=== PATIENT | female | born 2000 | race Two or more races ===

== ENCOUNTER 2025-02-18 17:46 | Emergency (ER) | payer OTHER ==
[~2025-02-18] VITALS: Ht 157.5 cm; Wt 65.8 kg
[2025-02-18 18:38] LABS: Hematocrit 35.0 % (36.0-46.0); Hemoglobin 12.2 g/dL (12.2-16.2); Mean Corpuscular Hemoglobin 32.0 pg (28.0-32.0); Mean Corpuscular Volume 92.0 fL (80.0-100.0); Nucleated Red Blood Cells % 0.1 %
[2025-02-18 18:47] LABS: Alkaline Phosphatase 51 U/L (46-116); Anion Gap 11 (5-15); BUN/Creatinine Ratio 12.3 (10.0-20.0); Calcium 9.5 mg/dL (8.7-10.4); Carbon Dioxide 23 mmol/L (20-31); Chloride 104 mmol/L (98-107); Glucose 83 mg/dL (74-106); Sodium 138 mmol/L (136-145); Total Protein 7.2 g/dL (5.7-8.2)
[2025-02-18 18:48] LABS: Albumin 4.2 g/dL (3.2-4.8); Bilirubin, Total 0.3 mg/dL (0.2-1.0)
[2025-02-18 18:52] LABS: Alanine Aminotransferase < 9 U/L (7-40); Blood Urea Nitrogen 7 mg/dL (9-23); Potassium 3.5 mmol/L (3.5-5.1)
[2025-02-18 19:31] LABS: Urine Protein, UAD Negative (Negative)
--- NOTE | 2025-02-18 20:18 | DVH ---
LIMITED OB ULTRASOUND > 14 WKS: HISTORY: pain TECHNIQUE: Multiple real-time grayscale images of the gravid uterus with duplex Doppler color flow and M-mode spectral analysis. TRANSDUCER: TRANSABDOMINAL FINDINGS: IUP single live fetus at 17 WEEKS 4 DAYS based on composite averages of the BPD, head circumference, abdominal circumference and femur length Estimated weight 193.6 grams heart rate 142 beats per minute mvp: 3.6 CM Cervix 3.9 CM PRESENTATION: Transverse head on maternal left POSTERIOR Grade 1 Placenta without previa or abruption. ANATOMY: 4-CHAMBER HEART: Within normal limits STOMACH: Normal RIGHT KIDNEY: Within normal limits LEFT KIDNEY: Normalbpd: BLADDER: Normal GESTATIONAL DATING: BPD: 3.83 cm = 17 weeks 5 days; 61.5 % HC: 14.57 cm, gestational age 17 weeks 5 days 58.4% AC: 11.78 cm, gestational age, 17 weeks 3 days, 51% FL: 2.39 cm= gestational age, 17 weeks 1 day 36.3% CI: 74.61 range 70.00-86.00 HC/AC: 1.24 range 1.08-1.28 FL/HC: 16.43 range 15.29 -17.83 IMPRESSION: 1. IUP single live fetus at 17 weeks 4 days AUA corresponding to an DESHAWN of 07/25/2025. 2. No placenta previa or abruption.
--- NOTE | 2025-02-18 20:30 | ED.PDOC ---
TRACTOR TRAILER TRUCK DRIVER HPI Comments PT REFERRED BY URGENT CARE TO ED FOR "AMNIOTIC FLUID CHECK & URINE PREGANCY TEST". PT DENIED ANY FURTHER S/S. LMP-09/16/2024. 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 HX: MARIANA NEWMAN PATIENT ALSO REPORTS WAS SEEN AT HER PCP PER VAGINAL DISCHARGE. SHE NOTES DARKISH BARND YELLOWISH DISCHARGE WITH NO PAIN. STATES SHE WAS GIVEN A SWABS SWAB HERSELF IN THE BATHROOM FELT SHE DID NOT GET THE SWAB ALL THE WAY UP RESULTS CAME BACK NEGATIVE. PATIENT STATES THAT SHE HAD BACTERIAL VAGINOSIS WITH THE LAST AND REPORTS CONCERN. DENIES ABDOMINAL PAIN/CRAMPING, VAGINAL SPOTTING OR BLEEDING REPORTS NO KNOWN INJURY. Chief Complaint: Time Seen by MD: 18:06 Reviewed Notes: Nurses Notes, Medications, Allergies Allergies: Coded Allergies: Amoxicillin (Verified Allergy, Unknown, 02/18/25) Home Meds Active Scripts Metronidazole Vaginal (Metronidazole Vaginal) 0.75 % Gel, 1 APPLIC VG QPM for 5 Days, #70 GRAMS Prov:ARIEL SINGH [facility] 02/18/25 Cephalexin Monohydrate (Cephalexin) 500 Mg Cap, 500 MG PO TID for 7 Days, #21 CAP Prov:ARIEL SINGH [facility] 02/18/25 Information Source: Patient Past Medical History PAST MEDICAL HISTORY: Denies Surgical History: Denies all surgeries REEL ASSEMBLER History: No Pertinent REEL ASSEMBLER History Family History Family History: Unknown Social History Smoker: Non-Smoker Alcohol: Denies ETOH Use Drugs: Denies Drug Use All Other Systems: Reviewed and Negative (see hpi) Physical Exam General Appearance: No Apparent Distress, Normal HEENT: Normal ENT Inspection, Pharynx Normal, TMs Normal Neck: Full Range of Motion, Non-Tender Respiratory: Lungs Clear, No Respiratory Distress, Normal Breath Sounds Cardiovascular: No Edema, No JVD, No Murmur, No Gallop, Normal Peripheral Pulses, Regular Rate/Rhythm Breast Exam: Deferred Gastrointestinal: No Organomegaly, Non Tender, No Pulsatile Mass, Normal Bowel Sounds, Soft Genitalia: Deferred Pelvic: Deferred Rectal: Deferred Extremities: No calf tenderness, Normal capillary refill, Normal range of motion, Non-tender, No pedal edema Musculoskeletal : Apperance: Normal Neurologic: Alert, No Motor Deficits, Normal Affect, Normal Mood, No Sensory Deficits Cerebellar Function: Normal Reflexes: NOT DONE Skin: Dry, Normal Color, Warm Lymphatic: No Adenopathy Was a procedure done? Was a procedure done?: No Differential Diagnosis (REEL ASSEMBLER) Vaginal Bleeding: - Incomplete, - Inevitable, - Threatened, Abruptio Placentae, Blood Loss Anemia, Placenta Previa, Precipitous Hct, UTI X-Ray, Labs, Meds, VS Vital Signs Date Time Temp Pulse Resp B/P (MAP) Pulse Ox O2 Delivery O2 Flow Rate FiO2 02/18/25 17:48 98.5 83 16 123/81 99 98.5 Lab Test 02/18/25 18:31 02/18/25 18:16 Range/Units Urine Color Light-yellow Yellow Urine Clarity Turbid H Clear Urine pH 5.5 5.0-9.0 Urine Specific Anderson 1.011 1.001-1.035 Urine Protein Negative Negative Urine Ketones 1+ H Negative Urine Blood Negative Negative /uL Urine Nitrite Negative Negative Urine Bilirubin Negative Negative Urine Urobilinogen Normal Negative mg/dL Urine Leukocyte Esterase 2+ Negative /uL Urine RBC 2 0 - 4 /hpf Urine Microscopic WBC 4 0-5 /HPF Urine Squamous Epithelial Cells Few <5 /hpf Urine Bacteria Few H None Seen /hpf Urine Glucose Normal Normal mg/dL Urine Test Positive Negative White Blood Count 12.7 H 4.4-10.8 10^3/uL Red Blood Count 3.80 L 4.0-5.20 10^6/uL Hemoglobin 12.2 12.2-16.2 g/dL Hematocrit 35.0 L 36.0-46.0 % Mean Corpuscular Volume 92.0 80.0-100.0 fL Mean Corpuscular Hemoglobin 32.0 28.0-32.0 pg Mean Corpuscular Hemoglobin Concent 34.8 32.0-36.0 g/dL Red Cell Distribution Width 13.2 11.8-14.3 % Platelet Count 292 140-450 10^3/uL Mean Platelet Volume 8.0 6.9-10.8 fL Neutrophils (%) (Auto) 79.1 37.0-80.0 % Lymphocytes (%) (Auto) 16.1 10.0-50.0 % Monocytes (%) (Auto) 3.8 0.0-12.0 % Eosinophils (%) (Auto) 0.7 0.0-7.0 % Basophils (%) (Auto) 0.3 0.0-2.0 % Neutrophils # (Auto) 10.1 H 1.6-8.6 10 ^3/uL Lymphocytes # (Auto) 2.0 0.4-5.4 10 ^3/uL Monocytes # (Auto) 0.5 0-1.3 10 ^3/uL Eosinophils # (Auto) 0.1 0-0.8 10 ^3/uL Basophils # (Auto) 0 0-0.2 10 ^3/uL Nucleated Red Blood Cells 0.1 % Sodium Level 138 136-145 mmol/L Potassium Level 3.5 3.5-5.1 mmol/L Chloride Level 104 98-107 mmol/L Carbon Dioxide Level 23 20-31 mmol/L Anion Gap 11 5-15 Blood Urea Nitrogen 7 L 9-23 mg/dL Creatinine 0.57 0.550-1.02 mg/dL Glomerular Filtration Rate Calc 132 >90 mL/min BUN/Creatinine Ratio 12.3 10.0-20.0 Serum Glucose 83 74-106 mg/dL Calcium Level 9.5 8.7-10.4 mg/dL Total Bilirubin 0.3 0.2-1.0 mg/dL Aspartate Amino Transferase (AST) 19 13-40 U/L Alanine Aminotransferase (ALT) < 9 7-40 U/L Alkaline Phosphatase 51 46-116 U/L Total Protein 7.2 5.7-8.2 g/dL Albumin 4.2 3.2-4.8 g/dL Beta HCG, Quantitative 14160.9 H 1.5-4.2 mIU/mL X-Ray, Labs, Meds, VS Comment IMPRESSION: 1. IUP single live fetus at 17 weeks 4 days AUA corresponding to an DESHAWN of 07/25/2025. 2. No placenta previa or abruption. Ob ultrasound shows 17 weeks gestation correlates with beta hCG. Positive urine. CBC does [place] [address]. CMP within normal limits. Urine does show infection. Patient given Rocephin 1 g IM for UTI. We will treat possible bacterial vaginosis based on patient's symptoms and reported history. Script trial of Flagyl and Keflex. Advised to take medications as prescribed side effects discussed. Advised to rest increase p.o. fluids with electrolytes. Advised to follow up with her PCP in 2-3 days consider repeat urine and urine culture and pelvic exam if symptoms persist. Advised on ER return precautions patient indicates understanding and agrees with discharge plan of care. Images Reviewed?: Images reviewed and evaluated by me Time of 1ST Reevaluation: 18:06 Reevaluation 1ST: Unchanged Reevaluation 2ND: Improved Patient Education/Counseling: Diagnosis, Treatment, Need For Follow Up Family Education/Counseling: No Family Present Departure 1 Departure Time of Disposition: 20:39 Impression: Primary Impression: UTI (urinary tract infection) Qualified Codes: N30.00 - Acute cystitis without hematuria Additional Impressions: Normal in second trimester Vaginal discharge during Qualified Codes: O26.892 - Other specified related conditions, second trimester; N89.8 - Other specified noninflammatory disorders of vagina Disposition: 01 HOME / SELF CARE / HOMELESS Condition: Stable e-Prescriptions Metronidazole Vaginal (Metronidazole Vaginal) 0.75 % Gel 1 APPLIC VG QPM for 5 Days, #70 GRAMS Prov: ARIEL SINGH 02/18/25 Cephalexin Monohydrate (Cephalexin) 500 Mg Cap 500 MG PO TID for 7 Days, #21 CAP Prov: ARIEL SINGH 02/18/25 Discharged With: Self Critical Care Note Critical Care Time?: No Stability Stability form required: No ARIEL SINGH Feb 18, 2025 20:30
[2025-02-18] MEDS ORDERED: cefTRIAXone SOD 1,000 MG VL ONE (20:43)
[2025-02-18] MEDS ORDERED: CEPH500C PO (20:44)
[2025-02-18] MEDS ORDERED: METR0.7511 VG (20:45)
[2025-02-18 20:47] VITALS: BP 116/74; PULSE 85; RESP 17; TEMP 99.2; O2SAT 97
[2025-02-18] MEDS: cefTRIAXone SOD 1,000 MG VL IM ONE (20:47)
[2025-02-18] MEDS ORDERED: METR-344 PO (20:54)
== END 2025-02-18 21:05 | disposition home or self-care (01) ==
LOC: ER 17:46
DX: O26.892 Other specified pregnancy related conditions, second trimester (principal); O23.42 Unspecified infection of urinary tract in pregnancy, second trimester; N39.0 Urinary tract infection, site not specified; Z3A.17 17 weeks gestation of pregnancy; Z88.0 Allergy status to penicillin; Z79.899 Other long term (current) drug therapy
CPT/HCPCS: 36415; 76805; 80053; 81001; 81025; 84702; 85025; 96372; 99285; J0696